=== PATIENT | male | born 1960 | race Caucasian/White ===

== ENCOUNTER 2016-09-17 02:52 | Emergency (ER) | payer OTHER ==
[2016-09-17] MEDS ORDERED: fentaNYL 100 MCG/2 ML SDV IVPUSH ONE (03:01)
[2016-09-17] MEDS ORDERED: Sodium Chloride 0.9% 10 ML Syringe FLUSH PRN (03:02)
[2016-09-17 03:08] VITALS: BP 122/79
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
== END 2016-09-17 04:03 | disposition home or self-care (01) ==
LOC: LL.ED 02:52
DX: M25.531 Pain in right wrist (principal); W23.0XXA Caught, crushed, jammed, or pinched between moving objects, initial encounter
CPT/HCPCS: 73110; 96374; 99283; J3010; J7050

== ENCOUNTER 2018-09-25 13:26 | Emergency (ER) | payer BC ==
[2018-09-25] MEDS ORDERED: Sodium Chloride 0.9% 10 ML Syringe FLUSH PRN (13:28)
[2018-09-25] MEDS ORDERED: Aspirin 81 MG Tab.Chew PO ONE (13:29)
[2018-09-25] MEDS ORDERED: Ticagrelor 90 MG Tab PO ONE (13:30)
[2018-09-25 14:06] LABS: CHLORIDE,CL 101 mmol/L (98-107); SODIUM,NA 138 mmol/L (136-145)
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
[2018-09-25 15:11] VITALS: BP 131/90; PULSE 67
== END 2018-09-25 15:25 ==
LOC: LL.ED 13:26
DX: R07.89 Other chest pain (principal); F17.210 Nicotine dependence, cigarettes, uncomplicated; Z98.890 Other specified postprocedural states
CPT/HCPCS: 36000; 36415; 71046; 80053; 83735; 83880; 84484; 85025; 85379; 93005; 99285; A9270

== ENCOUNTER 2020-08-10 19:32 | Emergency (ER) | payer BC ==
[2020-08-10] MEDS ORDERED: Famotidine 20 MG Tab PO ONE (19:38)
[2020-08-10] MEDS ORDERED: diphenhydrAMINE 50 MG/ML SDV IM ONE (19:38)
[2020-08-10] MEDS ORDERED: methylPREDNISolone Sodium Succinate 125 MG/2 ML SDV IM ONE (19:38)
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
[2020-08-10 19:41] VITALS: BP 123/62; PULSE 115
== END 2020-08-10 20:08 | disposition home or self-care (01) ==
LOC: LL.ED 19:32 → SUPCPDRO 19:32 → LL.ED 20:08
DX: S20.462A Insect bite (nonvenomous) of left back wall of thorax, initial encounter (principal); Z91.030 Bee allergy status; W57.XXXA Bitten or stung by nonvenomous insect and other nonvenomous arthropods, initial encounter
CPT/HCPCS: 96372; 99283; A9270-GY; J1200; J2930